=== PATIENT | female | born 1990 | race African-American/Black ===

== ENCOUNTER 2019-12-03 11:08 | Emergency (ER) | payer MEDICAID ==
[~2019-12-03] VITALS: Ht 167.6 cm; Wt 55.0 kg
[2019-12-03 11:11] VITALS: BP 142/70
[2019-12-03] MEDS ORDERED: KETOROLAC 30MG/ML VIAL IM ONE (11:30)
== END 2019-12-03 13:15 | disposition left against medical advice (07) ==
LOC: ER 11:29
DX: M54.9 Dorsalgia, unspecified (principal); Z88.5 Allergy status to narcotic agent; V19.88XA Pedal cyclist (driver) (passenger) injured in other specified transport accidents, initial encounter; Y93.89 Activity, other specified; Y92.89 Other specified places as the place of occurrence of the external cause; Y99.8 Other external cause status
CPT/HCPCS: 71250; 74176; 96372; 99284; J1885